=== PATIENT | female | born 1950 | race Caucasian/White ===

== ENCOUNTER 2022-02-10 11:59 | Outpatient (CLI) | payer MEDICARE ==
[2022-02-10] VITALS (22 sets, daily range): BP systolic 117–161; BP diastolic 63–108
== END 2022-02-10 23:59 | disposition home or self-care (01) ==
LOC: CARD DIAG 11:59
PROVIDERS: ATTEND Internal Medicine Cardiovascular Disease
DX: R42 Dizziness and giddiness (principal)
CPT/HCPCS: 93660